=== PATIENT | male | born 1940 | race Caucasian/White ===

== ENCOUNTER → 2016-05-07 | Outpatient (CLI) | payer OTHER ==
[~2016-05-07] MED LIST: ALLOPURINOL100 MG PO; AZITHROMYCIN500 M1 PO; CLONIDINE HCL0.2 MG PO; COREG25 M1 PO; LASIX20 MG PO; LASIX40 MG PO; LEVAQUIN250 MG PO; LEVOTHYROXINE88 MCG PO; LO-DOSE ASPIRIN81 M1 PO; NICOTINE PATCH1 EAC2 TD; NIFEDICAL XL60 MG PO; NIFEDIPINE ER60 MG PO; POTASSIUM CHLO20 ME2 PO; PREDNISONE10 MG PO; PROTONIX40 MG PO; VITAMIN D2000 UNIT PO; ZETIA10 MG PO
[2016-05-07 10:55] LABS: TYPE OF FLUID THORACENTESIS
[2016-05-07 11:35] LABS: BODY FLUID RBC'S 10000 /MM^3 (0-100); BODY FLUID WBC'S 1467 /MM^3 (0-500)
[2016-05-07 11:58] LABS: BODY FLUID LDH 149 IU/L
[2016-05-07 12:00] LABS: BODY FLUID EOSINOPHILS 1 % (0-25); MONO RAW COUNT 89; MONONUCLEAR WBC'S 89 %; POLY RAW COUNT 10; POLYNUCLEAR WBC'S 10 % (0-25)
== END | disposition home or self-care (01) ==
LOC: RAD 08:42 → EDSTATUS 09:00
PROVIDERS: Radiology Diagnostic Radiology
PROC: 0W9B3ZZ Drainage of Left Pleural Cavity, Percutaneous Approach (ICD-10-PCS; principal; 2016-05-07)
DX: J90 Pleural effusion, not elsewhere classified (principal)
CPT/HCPCS: 83615 91; 87070; 87075; 87205; 88108; 88305; 89051

== ENCOUNTER 2016-12-26 08:30 | Observation (INO) | payer OTHER ==
[~2016-12-26] VITALS: Ht 182.9 cm; Wt 84.9 kg
[~2016-12-26 08:30] MED LIST changes: +AMLODIPINE-OLM1 EAC1 PO
[2016-12-26 09:17] LABS: EOSINOPHIL (%) 4.9 % (0-5); EOSINOPHIL COUNT 0.3 K/uL (0-0.3); IMMATURE GRANULOCYTE (%) 0.3 % (0.0-0.7); MCH 32.1 PG (29.0-34.0); MCHC 33.2 G/DL (30.0-36.0); MCV 96.9 FL (86-99); MONOCYTE (%) 7.1 % (3-12); MONOCYTE COUNT 0.5 K/uL (0-0.8); NEUTROPHIL (%) 73.3 % (45-76); PLATELET COUNT 112 K/uL (156-360); RBC DIS.WIDTH-CV 12.8 % (11.8-14.6); RBC DIS.WIDTH-SD 45.7 % (39-53); RED BLOOD COUNT 3.92 M/uL (4.00-5.50); WHITE BLOOD COUNT 6.8 K/uL (4.1-10.2)
[2016-12-26 09:27] LABS: CHLORIDE 111 mEq/L (99-109); POTASSIUM 4.5 mEq/L (3.7-5.4); SODIUM 141 mEq/L (136-147)
[2016-12-26 09:29] LABS: GLUCOSE 97 mg/dL (70-99)
[2016-12-26 09:31] LABS: ANION GAP 10 MEQ/L (2-14)
[2016-12-26 09:33] LABS: GFR ESTIMATE (CALCULATED) 22 mL/min/
[2016-12-26 09:34] LABS: UREA NITROGEN (BUN) 36 mg/dL (9-23)
[2016-12-26 09:38] LABS: TROP-I INTERPRETATION NEGATIVE
[2016-12-26] MEDS ORDERED: ZANTAC300 MG PO (11:33)
[2016-12-26 15:17] VITALS: BP 162/102
[2016-12-26 20:05] VITALS: BP 185/113
[2016-12-26 21:51] VITALS: BP 138/90
[2016-12-27 00:40] VITALS: BP 150/90
[2016-12-27 04:31] VITALS: BP 187/109
[2016-12-27 05:37] LABS: ANION GAP 7 MEQ/L (2-14); CHLORIDE 110 MEQ/L (99-109); GFR ESTIMATE (CALCULATED) 22 mL/min/; POTASSIUM 4.6 MEQ/L (3.7-5.4); SAMPLE HEMOLYSIS CHECK 0; SAMPLE ICTERIC CHECK 0; SAMPLE LIPEMIA CHECK 0; SODIUM 140 MEQ/L (136-147); UREA NITROGEN (BUN) 43 mg/dL (9-23)
[2016-12-27 05:40] LABS: GLUCOSE 202 mg/dL (70-99)
[2016-12-27 06:07] VITALS: BP 160/90
[2016-12-27 07:53] VITALS: BP 154/96
[2016-12-27 09:12] LABS: TROP-I INTERPRETATION NEGATIVE
[2016-12-27 10:37] VITALS: BP 141/97
[2016-12-27] MEDS ORDERED: AZITHROMYCIN500 M1 PO (11:12)
[2016-12-27] MEDS ORDERED: NICOTINE PATCH1 EAC2 TD (11:12)
[2016-12-27] MEDS ORDERED: PREDNISONE10 MG PO (11:21)
== END 2016-12-27 14:54 | disposition home or self-care (01) ==
LOC: EME 08:30 → 5WEST 11:05 → EDOF 11:05 → CANRESERV 11:06 → ENRESERV 11:06 → 5WEST 15:10
PROVIDERS: Emergency Medicine; Internal Medicine
DX: J44.1 Chronic obstructive pulmonary disease with (acute) exacerbation (principal); J44.0 Chronic obstructive pulmonary disease with (acute) lower respiratory infection; J20.9 Acute bronchitis, unspecified; I45.10 Unspecified right bundle-branch block; I16.0 Hypertensive urgency; I71.4 Abdominal aortic aneurysm, without rupture; I12.9 Hypertensive chronic kidney disease with stage 1 through stage 4 chronic kidney disease, or unspecified chronic kidney disease; N18.4 Chronic kidney disease, stage 4 (severe); E78.5 Hyperlipidemia, unspecified; D69.6 Thrombocytopenia, unspecified; J90 Pleural effusion, not elsewhere classified; Z95.1 Presence of aortocoronary bypass graft; E55.9 Vitamin D deficiency, unspecified; E03.9 Hypothyroidism, unspecified; M10.9 Gout, unspecified; F17.210 Nicotine dependence, cigarettes, uncomplicated; Z98.890 Other specified postprocedural states
CPT/HCPCS: 71010; 71250; 74176; 80048; 84484; 85025; 87070; 87205; 93005; 93306; 94640; 94640 76; 99202; 99281; 99285; G0378; J0360; J0696; J1644; J2930; J7050; J7512